=== PATIENT | male | born 1985 | race Caucasian/White ===

== ENCOUNTER 2016-04-18 01:41 | Emergency (ER) | payer OTHER ==
--- NOTE | 2016-04-18 03:20 | ED CLINICAL REPORT ---
Clinical Report - Physicians/Mid Levels [facility] [address] [place] [address] 04/18/2016 1:43 Patient: OMAIRA KEARNEY V Time Seen: 02:06. Arrived- By private vehicle. Historian- patient. HISTORY OF PRESENT ILLNESS Chief Complaint: Injury to the right index finger. The injury happened just prior to arrival about 1 hour ago. The patient sustained a direct blow. With closed fist, patient struck wall. Patient is experiencing mild pain. No other injury. REVIEW OF SYSTEMS The patient has had new onset of pain-related weakness of the right index finger (mild). All systems otherwise negative, except as recorded above. PAST HISTORY The patient's dominant hand is the right. Tetanus immunization status is up-to-date. SOCIAL HISTORY Never smoker. No alcohol use or drug use. ADDITIONAL NOTES The nursing notes have been reviewed. PHYSICAL EXAM Vital Signs: 04/18/2016 01:57 BP: 135/76. HR: 55. RR: 14. O2 saturation: 99%. Temp: 99.1 F. Pain level now: 06/16. Have been reviewed. Head: Head atraumatic. Eyes: Pupils equal, round and reactive to light. ENT: Pharynx normal. Neck: Neck supple. CVS: Normal heart rate and rhythm. Heart sounds normal. Respiratory: No respiratory distress. Breath sounds normal. Abdomen: No visible injury. Soft and nontender. Bowel sounds normal. No organomegaly. No mass. Back: Normal inspection. ROM normal. Skin: Skin warm and dry. Extremities: Right index finger: mild tenderness, moderate swelling and deep abrasion of the middle phalanx; limited movement secondary to pain (diminished flexion). Neurovascular intact distally. Neuro, Vascular and Tendons: Vascular status intact. Sensation intact. Motor intact. Tendon function intact. PROGRESS AND PROCEDURES Laceration Repair: Location: right index finger. Time-out completed immediately before the procedure. Length: 1.0cm. Complexity: simple (closed with tissue adhesive). Wound depth/shape- subcutaneous and irregular. Exam note: deep abrasion. Prepped with Hibiclens. Wound explored and cleansed. Closure of superficial layer. Skin adhesive used. Post-procedure: he is stable and there are no complications. Bleeding is controlled and neuro-vascular status is intact distal to the wound. Patient/family counseled. Old medical records reviewed. Disposition: Discharged. Condition: stable. CLINICAL IMPRESSION Single deep abrasion to the right index finger. Contusion to the right hand. INSTRUCTIONS Apply ice for 20 minutes four times a day until better. Don't apply ice directly to skin and don't use while asleep. Warnings: COMPLICATIONS: Complications from this condition include: possible infection, possible injury to a tendon and possible injury to a ligament. Future problems may include infection, scarring, loss of function and pain. INFECTION: Watch for signs of infection (increasing heat and redness, pus-like drainage, swelling, or increased pain). Return or see your doctor if these signs occur. GENERAL WARNINGS: Return or contact your physician immediately if your condition worsens or changes unexpectedly, if not improving as expected, or if other problems arise. Follow-up: Return to the emergency department as needed. Follow up with your doctor as needed. Understanding of the discharge instructions verbalized by patient. (Electronically signed by Meliton Sung MD 04/19/2016 3:27)
--- NOTE | 2016-04-18 03:20 | ED ORDER SUMMARY ---
..... Patient: OMAIRA KEARNEY V OrderSheet [facility] VisitID: [id number] [address] [place] [address] 30y, M Registration Date/Time: 04/18/2016 ORDER SHEET Weight: 72.5 kg (stated) Allergies: No Known Drug Allergy GENERAL ORDERS: Hand 3 or 4V Right Urgent (02:03 04/18/2016 Amanda Foote per protocol) (2:11 Jamie) MEDICATION ORDERS: IV FLUIDS: ORDER SHEET NOTES: [Electronically signed by Stanford Lemos R.N. (03:50 04/18/2016)] [Electronically signed by Meliton Sung MD (03:27 04/19/2016)] [Electronically locked/signed by Stanford Lemos R.N. (03:50 04/18/2016)]
--- NOTE | 2016-04-18 03:20 | ED NURSING NOTES ---
Clinical Report - Nurses [place] [address] [place] [address] 04/18/2016 1:43 Patient: OMAIRA KEARNEY V TRIAGE Triage time 01:57. Acuity: LEVEL 4. Chief Complaint: INJURY TO RIGHT HAND. INJURY TO THE RIGHT MIDDLE FINGER. 02:00. Alert. SEPSIS SCREEN: Sepsis Screen. Negative (no infection suspected/documented). HODAN COMA SCORE: [place] Coma Scale: 15- eyes open spontaneously (4); best verbal response- oriented x 4 (5); best motor response- obeys commands (6). --02:00 Stanford Lemos R.N. 01:57 04/18/16. BP: 135/76. HR: 55. RR: 14. O2 saturation: 99%. Temp: 99.1 F. Pain level now: 06/16. --02:00 Stanford Lemos R.N. Weight: 72.5 kg stated. Height/Length: 72 inches Per Patient. BMI: 21.7. --01:59 Stanford Lemos R.N. Medications FLUoxetine HCl Oral 10 mg, daily. --01:58 Stanford Lemos R.N. Medication/allergy information source: the patient. --02:00 Stanford Lemos R.N. Allergies No Known Drug Allergy. --01:58 Stanford Lemos R.N. History Arrived by private vehicle. Historian: patient. Unaccompanied. Primary physician (None). This occurred (1 hours ago). Occurred at home. Mechanism of injury: (Punched a wall). 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 PAST MEDICAL HX: Tetanus status: up-to-date. Immunizations: up-to-date. SOCIAL HX: Never smoker. No alcohol use or drug use. No infectious disease exposure. ABUSE ASSESSMENT: No report of abuse. FALL RISK ASSESSMENT: Fall risk assessment completed. No fall risk identified. NUTRITIONAL RISK ASSESSMENT: The nutritional risk assessment revealed no deficiencies. FUNCTIONAL ASSESSMENT: Functional assessment: no impairments noted. LEARNING NEEDS ASSESSMENT: The learning needs assessment revealed no barriers. SKIN INTEGRITY ASSESSMENT: Skin integrity risk assessment completed. No skin integrity risk identified. --02:00 Stanford Lemos R.N. PROBLEMS: no known problems. ADDITIONAL SURGERIES: no known surgeries. Interventions ID band on patient. To treatment room. --02:00 Stanford Lemos R.N. PHYSICAL ASSESSMENT 02:02. EXTREMITIES: Neuro-vascular status intact to the extremity. Right middle finger: tenderness, swelling and superficial laceration with controlled bleeding. SKIN: Skin is warm and dry. --02:02 Stanford Lemos R.N. NURSING PROGRESS NOTES 02:02. Two patient identifiers checked. Call light placed in reach. Bed placed in lowest position. Brakes of bed on. Patient ready for evaluation- chart flagged. --02:03 Stanford Lemos R.N. Wound cleansed with sterile saline (0300). --03:05 Scotty Chambers R.N. 02:15 Portable x-ray right hand. --03:38 Stanford Lemos R.N. 03:40. Applied dressing consisting of Band-Aid, following the application of antibiotic ointment (bacitracin). --03:46 Stanford Lemos R.N. 03:44. The patient is calm and resting quietly. GENERAL / NEURO / PSYCH: Alert. Oriented X 4. RESPIRATORY: No respiratory distress. SKIN: Skin is warm and dry. --03:47 Stanford Lemos R.N. DISPOSITION / DISCHARGE Departure time: 03:49. Condition at departure: stable. No learning barriers present. Discharge instructions provided and reviewed with the patient. Patient verbalized understanding. Written instructions provided in Mongolian. The patient was discharged home and unaccompanied at time of discharge. He left the Emergency Department ambulatory and via private vehicle. Patient driving. FALL RISK ASSESSMENT: Fall risk assessment completed. No fall risk identified. --03:49 Stanford Lemos R.N. 03:45 04/18/16. BP: 120/64. HR: 61. RR: 14. O2 saturation: 98% on room air. Pain level now: 0/10. --03:49 Stanford Lemos R.N. Locked/Released at 04/18/2016 3:50 by Stanford Lemos R.N.
--- NOTE | 2016-04-18 03:20 | ED CLINICAL REPORT ---
Clinical Report - Physicians/Mid Levels [facility] [address] [place] [address] 04/18/2016 1:43 Patient: OMAIRA KEARNEY V Time Seen: 02:06. Arrived- By private vehicle. Historian- patient. HISTORY OF PRESENT ILLNESS Chief Complaint: Injury to the right index finger. The injury happened just prior to arrival about 1 hour ago. The patient sustained a direct blow. With closed fist, patient struck wall. Patient is experiencing mild pain. No other injury. REVIEW OF SYSTEMS The patient has had new onset of pain-related weakness of the right index finger (mild). All systems otherwise negative, except as recorded above. PAST HISTORY The patient's dominant hand is the right. Tetanus immunization status is up-to-date. SOCIAL HISTORY Never smoker. No alcohol use or drug use. ADDITIONAL NOTES The nursing notes have been reviewed. PHYSICAL EXAM Vital Signs: 04/18/2016 01:57 BP: 135/76. HR: 55. RR: 14. O2 saturation: 99%. Temp: 99.1 F. Pain level now: 06/16. Have been reviewed. Head: Head atraumatic. Eyes: Pupils equal, round and reactive to light. ENT: Pharynx normal. Neck: Neck supple. CVS: Normal heart rate and rhythm. Heart sounds normal. Respiratory: No respiratory distress. Breath sounds normal. Abdomen: No visible injury. Soft and nontender. Bowel sounds normal. No organomegaly. No mass. Back: Normal inspection. ROM normal. Skin: Skin warm and dry. Extremities: Right index finger: mild tenderness, moderate swelling and deep abrasion of the middle phalanx; limited movement secondary to pain (diminished flexion). Neurovascular intact distally. Neuro, Vascular and Tendons: Vascular status intact. Sensation intact. Motor intact. Tendon function intact. PROGRESS AND PROCEDURES Laceration Repair: Location: right index finger. Time-out completed immediately before the procedure. Length: 1.0cm. Complexity: simple (closed with tissue adhesive). Wound depth/shape- subcutaneous and irregular. Exam note: deep abrasion. Prepped with Hibiclens. Wound explored and cleansed. Closure of superficial layer. Skin adhesive used. Post-procedure: he is stable and there are no complications. Bleeding is controlled and neuro-vascular status is intact distal to the wound. Patient/family counseled. Old medical records reviewed. Disposition: Discharged. Condition: stable. CLINICAL IMPRESSION Single deep abrasion to the right index finger. Contusion to the right hand. INSTRUCTIONS Apply ice for 20 minutes four times a day until better. Don't apply ice directly to skin and don't use while asleep. Warnings: COMPLICATIONS: Complications from this condition include: possible infection, possible injury to a tendon and possible injury to a ligament. Future problems may include infection, scarring, loss of function and pain. INFECTION: Watch for signs of infection (increasing heat and redness, pus-like drainage, swelling, or increased pain). Return or see your doctor if these signs occur. GENERAL WARNINGS: Return or contact your physician immediately if your condition worsens or changes unexpectedly, if not improving as expected, or if other problems arise. Follow-up: Return to the emergency department as needed. Follow up with your doctor as needed. Understanding of the discharge instructions verbalized by patient. (Electronically signed by Meliton Sung MD 04/19/2016 3:27)
--- NOTE | 2016-04-18 03:20 | ED ORDER SUMMARY ---
..... Patient: OMAIRA KEARNEY V OrderSheet [facility] VisitID: [id number] [address] [place] [address] 30y, M Registration Date/Time: 04/18/2016 ORDER SHEET Weight: 72.5 kg (stated) Allergies: No Known Drug Allergy GENERAL ORDERS: Hand 3 or 4V Right Urgent (02:03 04/18/2016 Amanda Foote per protocol) (2:11 Jamie) MEDICATION ORDERS: IV FLUIDS: ORDER SHEET NOTES: [Electronically signed by Stanford Lemos R.N. (03:50 04/18/2016)] [Electronically signed by Meliton Sung MD (03:27 04/19/2016)] [Electronically locked/signed by Stanford Lemos R.N. (03:50 04/18/2016)]
--- NOTE | 2016-04-18 03:20 | ED NURSING NOTES ---
Clinical Report - Nurses [place] [address] [place] [address] 04/18/2016 1:43 Patient: OMAIRA KEARNEY V TRIAGE Triage time 01:57. Acuity: LEVEL 4. Chief Complaint: INJURY TO RIGHT HAND. INJURY TO THE RIGHT MIDDLE FINGER. 02:00. Alert. SEPSIS SCREEN: Sepsis Screen. Negative (no infection suspected/documented). HODAN COMA SCORE: [place] Coma Scale: 15- eyes open spontaneously (4); best verbal response- oriented x 4 (5); best motor response- obeys commands (6). --02:00 Stanford Lemos R.N. 01:57 04/18/16. BP: 135/76. HR: 55. RR: 14. O2 saturation: 99%. Temp: 99.1 F. Pain level now: 06/16. --02:00 Stanford Lemos R.N. Weight: 72.5 kg stated. Height/Length: 72 inches Per Patient. BMI: 21.7. --01:59 Stanford Lemos R.N. Medications FLUoxetine HCl Oral 10 mg, daily. --01:58 Stanford Lemos R.N. Medication/allergy information source: the patient. --02:00 Stanford Lemos R.N. Allergies No Known Drug Allergy. --01:58 Stanford Lemos R.N. History Arrived by private vehicle. Historian: patient. Unaccompanied. Primary physician (None). This occurred (1 hours ago). Occurred at home. Mechanism of injury: (Punched a wall). 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 PAST MEDICAL HX: Tetanus status: up-to-date. Immunizations: up-to-date. SOCIAL HX: Never smoker. No alcohol use or drug use. No infectious disease exposure. ABUSE ASSESSMENT: No report of abuse. FALL RISK ASSESSMENT: Fall risk assessment completed. No fall risk identified. NUTRITIONAL RISK ASSESSMENT: The nutritional risk assessment revealed no deficiencies. FUNCTIONAL ASSESSMENT: Functional assessment: no impairments noted. LEARNING NEEDS ASSESSMENT: The learning needs assessment revealed no barriers. SKIN INTEGRITY ASSESSMENT: Skin integrity risk assessment completed. No skin integrity risk identified. --02:00 Stanford Lemos R.N. PROBLEMS: no known problems. ADDITIONAL SURGERIES: no known surgeries. Interventions ID band on patient. To treatment room. --02:00 Stanford Lemos R.N. PHYSICAL ASSESSMENT 02:02. EXTREMITIES: Neuro-vascular status intact to the extremity. Right middle finger: tenderness, swelling and superficial laceration with controlled bleeding. SKIN: Skin is warm and dry. --02:02 Stanford Lemos R.N. NURSING PROGRESS NOTES 02:02. Two patient identifiers checked. Call light placed in reach. Bed placed in lowest position. Brakes of bed on. Patient ready for evaluation- chart flagged. --02:03 Stanford Lemos R.N. Wound cleansed with sterile saline (0300). --03:05 Scotty Chambers R.N. 02:15 Portable x-ray right hand. --03:38 Stanford Lemos R.N. 03:40. Applied dressing consisting of Band-Aid, following the application of antibiotic ointment (bacitracin). --03:46 Stanford Lemos R.N. 03:44. The patient is calm and resting quietly. GENERAL / NEURO / PSYCH: Alert. Oriented X 4. RESPIRATORY: No respiratory distress. SKIN: Skin is warm and dry. --03:47 Stanford Lemos R.N. DISPOSITION / DISCHARGE Departure time: 03:49. Condition at departure: stable. No learning barriers present. Discharge instructions provided and reviewed with the patient. Patient verbalized understanding. Written instructions provided in Azeri. The patient was discharged home and unaccompanied at time of discharge. He left the Emergency Department ambulatory and via private vehicle. Patient driving. FALL RISK ASSESSMENT: Fall risk assessment completed. No fall risk identified. --03:49 Stanford Lemos R.N. 03:45 04/18/16. BP: 120/64. HR: 61. RR: 14. O2 saturation: 98% on room air. Pain level now: 0/10. --03:49 Stanford Lemos R.N. Locked/Released at 04/18/2016 3:50 by Stanford Lemos R.N.
--- NOTE | 2016-04-18 07:14 | DIAGNOSTIC IMAGING REPORT ---
PROCEDURE: XR HAND 3 OR 4 VIEWS - RIGHT INDICATION: TRAUMA/INJURY TECHNIQUE: Three views. COMPARISON: None. FINDINGS: Osseous structures and joint spaces are normal. IMPRESSION: 1. Normal right hand.
--- NOTE | 2016-04-19 03:27 | ED MED RECONCILIATION SUMMARY ---
Patient: OMAIRA KEARNEY V Medication Reconciliation Report [facility] VisitID: [id number] [address] [place] [address] 30y, M Registration Date/Time: 04/18/2016 Weight: 72.5 kg Height/Length: 72 in. BMI: 21.7 ALLERGIES: No Known Drug Allergy The patient's Home Medications are listed below: THE FOLLOWING MEDICATIONS NEED TO BE RECONCILED: FLUoxetine HCl Oral 10 mg, daily The source(s) of the original Home Medication information: patient The following Medications were given to the patient in the Emergency Department: None. The following Medications were prescribed to the patient: None.
--- NOTE | 2016-04-19 03:27 | ED MAR SUMMARY ---
..... Medication Administration Record [facility] [address], [place] [id number] Patient: OMAIRA KEARNEY V Visit ID: [id number] 30y, M Weight: 72.5 kg Height/Length: 72 in BMI: 21.7 ALLERGIES: No Known Drug Allergy
--- NOTE | 2016-04-19 03:27 | ED MED RECONCILIATION SUMMARY ---
Patient: OMAIRA KEARNEY V Medication Reconciliation Report [facility] VisitID: [id number] [address] [place] [address] 30y, M Registration Date/Time: 04/18/2016 Weight: 72.5 kg Height/Length: 72 in. BMI: 21.7 ALLERGIES: No Known Drug Allergy The patient's Home Medications are listed below: THE FOLLOWING MEDICATIONS NEED TO BE RECONCILED: FLUoxetine HCl Oral 10 mg, daily The source(s) of the original Home Medication information: patient The following Medications were given to the patient in the Emergency Department: None. The following Medications were prescribed to the patient: None.
--- NOTE | 2016-04-19 03:27 | ED DISCHARGE INSTRUCTIONS ---
Patient: OMAIRA KEARNEY V General Instructions [facility] VisitID: [id number] [address] [place] [address] 30y, M Registration Date/Time: 04/18/2016 Single deep abrasion to the right index finger. Contusion to the right hand. INSTRUCTIONS Apply ice for 20 minutes four times a day until better. Don't apply ice directly to skin and don't use while asleep. Warnings: COMPLICATIONS: Complications from this condition include: possible infection, possible injury to a tendon and possible injury to a ligament. Future problems may include infection, scarring, loss of function and pain. INFECTION: Watch for signs of infection (increasing heat and redness, pus-like drainage, swelling, or increased pain). Return or see your doctor if these signs occur. GENERAL WARNINGS: Return or contact your physician immediately if your condition worsens or changes unexpectedly, if not improving as expected, or if other problems arise. Follow-up: Return to the emergency department as needed. Follow up with your doctor as needed. Understanding of the discharge instructions verbalized by patient. ADDITIONAL INFORMATION Abrasions Abrasions are skin scrapes. Their treatment depends on how large and deep the abrasion is. Home Care: If you were given a bandage, change it once a day. If your bandage sticks to the wound, soak it in warm water until it loosens. Wash the area with soap and water to remove all the cream/ointment. You may do this in a sink, under a tub faucet or shower. Rinse off the soap and pat dry with a clean towel. Reapply cream/ointment according to your doctor's instructions. This will prevent infection and help prevent the bandage from sticking. Cover the wound with a fresh non-stick bandage (Telfa). Repeat steps 1 to 4 daily, or as directed by your doctor. If the bandage becomes wet or dirty, change it as soon as possible. You may use acetaminophen (Tylenol) or ibuprofen (Motrin, Advil) to control pain, unless another pain medicine was prescribed. [ NOTE : If you have chronic liver or kidney disease or ever had a stomach ulcer or GI bleeding, talk with your doctor before using these medicines.] Do not use ibuprofen in children under six months of age. Follow Up with your physician or this facility as directed by our staff. Most skin wounds heal within ten days. However, an infection may occur despite proper treatment. Therefore, look for the early signs of infection listed below. Get Prompt Medical Attention if any of the following occur: Increasing pain in the wound Increasing redness or swelling Pus coming from the wound Fever of 100.4F (38C) or higher, or as directed by your healthcare provider Contusion: Hand You have a CONTUSION of your hand. This causes local pain, swelling and sometimes bruising. There are no broken bones. This injury takes from a few days to a few weeks to heal. Home Care: 1) Keep your arm elevated to reduce pain and swelling. This is very important during the first 48 hours. 2) Apply an ice pack (ice cubes in a plastic bag, wrapped in a towel) over the injured area for 20 minutes every 1-2 hours the first day. You should continue with ice packs 3-4 times a day for the next two days. Continue the use of ice packs for relief of pain and swelling as needed. 3) You may use acetaminophen (Tylenol) or ibuprofen (Motrin, Advil) to control pain, unless another pain medicine was prescribed. [ NOTE : If you have chronic liver or kidney disease or ever had a stomach ulcer or GI bleeding, talk with your doctor before using these medicines.] Follow Up with your doctor or this facility if you are not starting to improve within the next THREE days. [NOTE: If X-rays were taken, they will be reviewed by a radiologist. You will be notified of any new findings that may affect your care.] Get Prompt Medical Attention if any of the following occur: -- Pain or swelling increases -- Redness, warmth or drainage -- Hand or fingers becomes cold, blue, numb or tingly Contusion: Finger You have a CONTUSION of your finger. This causes local pain, swelling and sometimes bruising. There are no broken bones. This injury takes a few days to a few weeks to heal. A finger contusion may be treated with a splint or "kody tape" (taping the injured finger to the one next to it for support). Minor contusions may require no additional support. Home Care: 1) Keep your hand elevated to reduce pain and swelling. This is very important during the first 48 hours. 2) Apply an ice pack (ice cubes in a plastic bag, wrapped in a towel) over the injured area for 20 minutes every 1-2 hours the first day. You should continue with ice packs 3-4 times a day for the next two days. Continue the use of ice packs for relief of pain and swelling as needed. 3) If kody tape was applied and it becomes wet or dirty, change it. You may replace it with paper, plastic or cloth tape. Cloth tape and paper tapes must be kept dry. Keep the kody tape in place for at least one week. 4) You may use acetaminophen (Tylenol) or ibuprofen (Motrin, Advil) to control pain, unless another pain medicine was prescribed. [ NOTE : If you have chronic liver or kidney disease or ever had a stomach ulcer or GI bleeding, talk with your doctor before using these medicines.] Follow Up with your doctor or this facility if your injury does not start to improve within the next THREE days. [NOTE: If X-rays were taken, they will be reviewed by a radiologist. You will be notified of any new findings that may affect your care.] Get Prompt Medical Attention if any of the following occur: -- Pain or swelling increases -- Redness, warmth or drainage -- Hand or fingers becomes cold, blue, numb or tingly You have been given the following additional information: Abrasion Contusion, Hand Finger Contusion (Electronically signed by Meliton Sung MD 04/19/2016 3:27)
--- NOTE | 2016-04-19 03:27 | ED MAR SUMMARY ---
..... Medication Administration Record [facility] [address], [place] [id number] Patient: OMAIRA KEARNEY V Visit ID: [id number] 30y, M Weight: 72.5 kg Height/Length: 72 in BMI: 21.7 ALLERGIES: No Known Drug Allergy
== END 2016-04-18 03:49 | disposition home or self-care (01) ==
LOC: ED SRH 01:41
DX: S61.210A Laceration without foreign body of right index finger without damage to nail, initial encounter (principal); S60.221A Contusion of right hand, initial encounter; S60.410A Abrasion of right index finger, initial encounter; W22.8XXA Striking against or struck by other objects, initial encounter; Y93.89 Activity, other specified; Y92.9 Unspecified place or not applicable; Y99.9 Unspecified external cause status